=== PATIENT | female | born 1930 | race African-American/Black ===

== ENCOUNTER 2020-01-11 21:02 | Inpatient (IN) | payer OTHER ==
[~2020-01-11] VITALS: Ht 160 cm; Wt 56.3 kg
[2020-01-11] MEDS ORDERED: SODI650T33 PO (23:49)
[2020-01-11] MEDS ORDERED: MIRT-89 PO (23:49)
[2020-01-11] MEDS ORDERED: AMLO-258 PO (23:49)
[2020-01-11] MEDS ORDERED: FERRHI IV (23:49)
[2020-01-11] MEDS ORDERED: FERR-89 PO (23:49)
[2020-01-11] MEDS ORDERED: AMAN-6 PO (23:49)
[2020-01-11] MEDS ORDERED: DOCU-275 PO (23:49)
[2020-01-11] MEDS ORDERED: OS500 PO (23:49)
[2020-01-11] MEDS ORDERED: CLON1PAT12 TD (23:49)
[2020-01-12 00:31] LABS: COVID AG,FIA SOURCE NASOPHARYNGEAL
[2020-01-12 00:49] LABS: BASOPHILS % (AUTO) 0.7 % (0.0-2.0); HEMATOCRIT 21.4 % (36-46); HEMOGLOBIN 7.6 g/dL (12.0-16.0); LYMPHOCYTES # (AUTO) 2.1 K/uL (1.0-4.8); LYMPHOCYTES % (AUTO) 24.1 % (22.0-44.0); MEAN CORPUSCULAR HEMOGLOBIN 34.2 pg (26.0-34.0); MEAN CORPUSCULAR HGB CONC 35.6 G/dL (31.0-37.0); MEAN CORPUSCULAR VOLUME 96 fL (80-100); MONOCYTES # (AUTO) 0.6 K/uL (0.1-1.0); MONOCYTES % (AUTO) 7.5 % (2.0-9.0); NEUTROPHILS # (AUTO) 5.7 K/uL (1.8-7.7); NEUTROPHILS % (AUTO) 66.7 % (40.0-70.0); PLATELET COUNT (AUTO) 575 K/uL (150-450); RED BLOOD CELL COUNT(AUTO) 2.22 MIL/uL (4.00-5.20); RED CELL DISTRIBUTION WIDTH 14.2 % (11.5-14.5)
[2020-01-12 00:55] LABS: CREATININE 5.66 mg/dL (0.60-1.30); POTASSIUM 4.9 mmol/L (3.5-5.1)
[2020-01-12 01:02] LABS: ALBUMIN 2.6 g/dL (3.4-5.0); BILIRUBIN,TOTAL 0.3 mg/dL (0.1-1.0); TOTAL PROTEIN, SERUM 9.6 g/dL (6.4-8.2)
[2020-01-12 01:09] LABS: INFLUENZA TYPE A NEGATIVE FOR TYPE A (NEGATIVE); INFLUENZA TYPE B NEGATIVE FOR TYPE B (NEGATIVE)
[2020-01-12] MEDS ORDERED: SODIUM CHLORIDE 0.9% 1,000 ML IV ONE ×2 (01:30→06:15)
[2020-01-12 03:30] VITALS: BP 131/63
[2020-01-12] MEDS ORDERED: INFLUENZA VIRUS VACCINE QVS 2020-21 (6MO+)/PF 60 MCG/0.5 ML SYRINGE IM ONE (04:45)
[2020-01-12] MEDS ORDERED: PNEUMOCOCCAL VACCINE POLYVALENT 0.5 ML VIAL [PPSV23] IM ONE (04:45)
[2020-01-12] MEDS ORDERED: BISACODYL 10 MG RECTAL RECTAL SUPPOSITORY PR PRN (06:15)
[2020-01-12] MEDS ORDERED: HYDROCODONE/ACETAMINOPHEN 5-325 MG TABLET PO PRN (06:15)
[2020-01-12] MEDS ORDERED: MORPHINE SULFATE 2 MG/ML SYRINGE IVP PRN (06:15)
[2020-01-12] MEDS ORDERED: ONDANSETRON HCL 4 MG/2 ML VIAL IVP PRN (06:15)
[2020-01-12] MEDS ORDERED: MAGNESIUM HYDROXIDE SUSPENSION 30 ML UDCUP PO PRN (06:15)
[2020-01-12] MEDS ORDERED: ZOLPIDEM TARTRATE 5 MG TABLET PO PRN (06:15)
[2020-01-12] MEDS ORDERED: ACETAMINOPHEN 325 MG TABLET PO PRN (06:15)
[2020-01-12 07:18] VITALS: BP 134/66
[2020-01-12] MEDS: HEPARIN SODIUM,PORCINE 5,000 UNITS/ML VIAL SQ SCH ×2 (08:00→17:44)
[2020-01-12] MEDS: FERROUS SULFATE 325 MG EC TABLET PO SCH ×2 (08:17→17:13)
[2020-01-12] MEDS: CALCIUM OYSTER SHELL 500 MG TABLET PO SCH ×2 (08:18→21:32)
[2020-01-12] MEDS: SODIUM BICARBONATE 650 MG TABLET PO SCH ×3 (08:18→21:32)
[2020-01-12] MEDS: AmLODIPine BESYLATE 10 MG TABLET PO SCH (08:18)
[2020-01-12] MEDS: AMANTADINE HCL 100 MG CAPSULE PO SCH (08:18)
[2020-01-12] MEDS: CloNIDine 0.1 MG/24 HOUR PATCH TD SCH (08:21)
[2020-01-12] MEDS: DOCUSATE SODIUM 100 MG CAPSULE PO SCH ×2 (08:24→21:31)
[2020-01-12] MEDS ORDERED: PANTOPRAZOLE SODIUM 40 MG DR TABLET PO SCH (09:00)
[2020-01-12 10:55] VITALS: BP 114/55
[2020-01-12 14:53] VITALS: BP 124/66
[2020-01-12] MEDS: EPOETIN ALFA 10,000 UNITS/ML VIAL SQ SCH (17:23)
[2020-01-12 20:08] LABS: CREATININE,URINE RANDOM 32.4 mg/dL (30.0-125.0)
[2020-01-13] VITALS (15 sets, daily range): BP systolic 115–135; BP diastolic 47–74
[2020-01-13] MEDS: HEPARIN SODIUM,PORCINE 5,000 UNITS/ML VIAL SQ SCH
[2020-01-13 06:56] LABS: BASOPHILS % (AUTO) 0.9 % (0.0-2.0); EOSINOPHILS % (AUTO) 1.1 % (1.0-6.0); LYMPHOCYTES # (AUTO) 1.4 K/uL (1.0-4.8); LYMPHOCYTES % (AUTO) 15.9 % (22.0-44.0); MEAN CORPUSCULAR HEMOGLOBIN 33.5 pg (26.0-34.0); MEAN CORPUSCULAR HGB CONC 34.2 G/dL (31.0-37.0); MEAN CORPUSCULAR VOLUME 98 fL (80-100); MONOCYTES # (AUTO) 0.8 K/uL (0.1-1.0); NEUTROPHILS # (AUTO) 6.3 K/uL (1.8-7.7); NEUTROPHILS % (AUTO) 73.1 % (40.0-70.0); PLATELET COUNT (AUTO) 495 K/uL (150-450); RED CELL DISTRIBUTION WIDTH 14.5 % (11.5-14.5)
[2020-01-13 07:01] LABS: HEMATOCRIT 19.6 % (36-46); HEMOGLOBIN 6.7 g/dL (12.0-16.0)
[2020-01-13 07:33] LABS: CALCIUM, TOTAL 9.1 mg/dL (8.8-10.5); CREATININE 5.5 mg/dL (0.60-1.30); MAGNESIUM 1.7 mg/dL (1.80-2.40); PHOSPHORUS 5.3 mg/dL (2.5-4.9)
[2020-01-13 08:08] LABS: % IRON SATURATION 21.3 % (22-44)
[2020-01-13] MEDS: FERROUS SULFATE 325 MG EC TABLET PO SCH ×2 (08:24→17:09)
[2020-01-13] MEDS: AMANTADINE HCL 100 MG CAPSULE PO SCH (08:24)
[2020-01-13] MEDS: DOCUSATE SODIUM 100 MG CAPSULE PO SCH ×2 (08:24→20:30)
[2020-01-13] MEDS: PANTOPRAZOLE SODIUM 40 MG/VIAL IVP SCH ×2 (08:24→20:30)
[2020-01-13] MEDS: AmLODIPine BESYLATE 10 MG TABLET PO SCH (08:24)
[2020-01-13] MEDS: CALCIUM OYSTER SHELL 500 MG TABLET PO SCH ×2 (08:24→20:30)
[2020-01-13] MEDS: SODIUM BICARBONATE 650 MG TABLET PO SCH ×3 (08:24→20:30)
[2020-01-13] MEDS: CefTRIAXone 1 GM/DEXTROSE 50 ML IV SCH (13:48)
[2020-01-13] MEDS ORDERED: SODIUM CHLORIDE 0.9% 1,000 ML ONE (14:41)
[2020-01-13 15:20] LABS: HEMATOCRIT 21.1 % (36-46); HEMOGLOBIN 7.2 g/dL (12.0-16.0)
[2020-01-13 18:57] LABS: APPEARANCE,URINE TURBID (CLEAR); BILIRUBIN,URINE NEGATIVE (NEGATIVE); GLUCOSE, URINE (UA) NEGATIVE (NEGATIVE); KETONES,URINE NEGATIVE (NEGATIVE); LEUKOCYTE ESTERASE ,URINE LARGE (NEGATIVE); NITRATE,URINE NEGATIVE (NEGATIVE); OCCULT BLOOD,URINE LARGE (NEGATIVE); PH,URINE 6.5 (5.0-8.0); PROTEIN,URINE SEE CONFIRM (NEGATIVE); UROBILINOGEN,URINE 0.2 mg/dL (<=1.0)
[2020-01-13 19:14] LABS: SULFOSALICYLIC ACID,URINE 4+ (Negative)
[2020-01-13 19:15] LABS: BACTERIA,URINE Many /HPF (None Seen); WBC,URINE Full Field /HPF (0-5)
[2020-01-13 19:16] LABS: SQUAMOUS EPITHELIAL CELL,UR Few /LPF (None Seen)
[2020-01-14] VITALS (8 sets, daily range): BP systolic 96–132; BP diastolic 56–92
[2020-01-14 00:59] LABS: HEMATOCRIT 26.6 % (36-46); HEMOGLOBIN 9.1 g/dL (12.0-16.0)
[2020-01-14 06:22] LABS: BASOPHILS % (AUTO) 0.7 % (0.0-2.0); EOSINOPHILS % (AUTO) 1.5 % (1.0-6.0); HEMATOCRIT 25.2 % (36-46); HEMOGLOBIN 8.8 g/dL (12.0-16.0); LYMPHOCYTES # (AUTO) 1.6 K/uL (1.0-4.8); LYMPHOCYTES % (AUTO) 23.1 % (22.0-44.0); MEAN CORPUSCULAR HEMOGLOBIN 31.9 pg (26.0-34.0); MEAN CORPUSCULAR HGB CONC 34.9 G/dL (31.0-37.0); MEAN CORPUSCULAR VOLUME 91 fL (80-100); MONOCYTES # (AUTO) 0.6 K/uL (0.1-1.0); MONOCYTES % (AUTO) 9.1 % (2.0-9.0); NEUTROPHILS # (AUTO) 4.6 K/uL (1.8-7.7); NEUTROPHILS % (AUTO) 65.6 % (40.0-70.0); PLATELET COUNT (AUTO) 431 K/uL (150-450); RED BLOOD CELL COUNT(AUTO) 2.76 MIL/uL (4.00-5.20); RED CELL DISTRIBUTION WIDTH 19.4 % (11.5-14.5)
[2020-01-14 06:58] LABS: CALCIUM, TOTAL 9.3 mg/dL (8.8-10.5); CREATININE 5.17 mg/dL (0.60-1.30); POTASSIUM 4.8 mmol/L (3.5-5.1)
[2020-01-14] MEDS: AMANTADINE HCL 100 MG CAPSULE PO SCH (08:58)
[2020-01-14] MEDS: DOCUSATE SODIUM 100 MG CAPSULE PO SCH ×2 (08:58→21:01)
[2020-01-14] MEDS: CALCIUM OYSTER SHELL 500 MG TABLET PO SCH ×2 (08:59→21:02)
[2020-01-14] MEDS: AmLODIPine BESYLATE 10 MG TABLET PO SCH (08:59)
[2020-01-14] MEDS: FERROUS SULFATE 325 MG EC TABLET PO SCH ×2 (08:59→18:25)
[2020-01-14] MEDS: SODIUM BICARBONATE 650 MG TABLET PO SCH ×3 (08:59→21:02)
[2020-01-14] MEDS: PANTOPRAZOLE SODIUM 40 MG/VIAL IVP SCH ×2 (10:02→21:01)
[2020-01-14 12:29] LABS: HEMATOCRIT 26.7 % (36-46); HEMOGLOBIN 9.1 g/dL (12.0-16.0)
[2020-01-14] MEDS ORDERED: SODIUM CHLORIDE 0.9% 250 ML IV ONE (13:18)
[2020-01-14] MEDS: CefTRIAXone 1 GM/DEXTROSE 50 ML IV SCH (13:25)
[2020-01-14 17:23] LABS: HEMATOCRIT 25.7 % (36-46); HEMOGLOBIN 8.8 g/dL (12.0-16.0)
[2020-01-15 04:21] VITALS: BP 119/65
[2020-01-15 07:33] VITALS: BP 121/63
[2020-01-15 07:56] LABS: BASOPHILS % (AUTO) 1.3 % (0.0-2.0); EOSINOPHILS % (AUTO) 2.2 % (1.0-6.0); HEMATOCRIT 27.4 % (36-46); HEMOGLOBIN 9.6 g/dL (12.0-16.0); LYMPHOCYTES # (AUTO) 1.7 K/uL (1.0-4.8); LYMPHOCYTES % (AUTO) 29.9 % (22.0-44.0); MEAN CORPUSCULAR HEMOGLOBIN 32.2 pg (26.0-34.0); MEAN CORPUSCULAR HGB CONC 34.9 G/dL (31.0-37.0); MEAN CORPUSCULAR VOLUME 92 fL (80-100); MONOCYTES # (AUTO) 0.5 K/uL (0.1-1.0); MONOCYTES % (AUTO) 8.9 % (2.0-9.0); NEUTROPHILS # (AUTO) 3.3 K/uL (1.8-7.7); NEUTROPHILS % (AUTO) 57.7 % (40.0-70.0); PLATELET COUNT (AUTO) 412 K/uL (150-450); RED BLOOD CELL COUNT(AUTO) 2.97 MIL/uL (4.00-5.20); RED CELL DISTRIBUTION WIDTH 18.9 % (11.5-14.5)
[2020-01-15 08:10] LABS: CALCIUM, TOTAL 9.3 mg/dL (8.8-10.5); CREATININE 4.39 mg/dL (0.60-1.30); POTASSIUM 4.5 mmol/L (3.5-5.1)
[2020-01-15] MEDS: SODIUM BICARBONATE 650 MG TABLET PO SCH ×4 (08:58→21:18)
[2020-01-15] MEDS: AMANTADINE HCL 100 MG CAPSULE PO SCH (08:58)
[2020-01-15] MEDS: CALCIUM OYSTER SHELL 500 MG TABLET PO SCH (08:59)
[2020-01-15] MEDS: FERROUS SULFATE 325 MG EC TABLET PO SCH ×2 (08:59→18:41)
[2020-01-15] MEDS: DOCUSATE SODIUM 100 MG CAPSULE PO SCH ×3 (08:59→21:18)
[2020-01-15] MEDS: AmLODIPine BESYLATE 10 MG TABLET PO SCH (08:59)
[2020-01-15] MEDS: PANTOPRAZOLE SODIUM 40 MG/VIAL IVP SCH ×3 (09:01→21:18)
[2020-01-15 12:39] VITALS: BP 112/59
[2020-01-15] MEDS: CefTRIAXone 1 GM/DEXTROSE 50 ML IV SCH (13:20)
[2020-01-15 15:57] VITALS: BP 101/56
[2020-01-15 19:48] VITALS: BP 112/54
[2020-01-16 00:06] VITALS: BP 107/54
[2020-01-16 04:43] VITALS: BP 117/54
[2020-01-16 07:49] LABS: CALCIUM, TOTAL 8.9 mg/dL (8.8-10.5); CREATININE 4.05 mg/dL (0.60-1.30); MAGNESIUM 1.6 mg/dL (1.80-2.40); PHOSPHORUS 3.7 mg/dL (2.5-4.9); POTASSIUM 3.9 mmol/L (3.5-5.1)
[2020-01-16 08:38] VITALS: BP 112/57
[2020-01-16] MEDS: FERROUS SULFATE 325 MG EC TABLET PO SCH ×2 (08:42→17:58)
[2020-01-16] MEDS: DOCUSATE SODIUM 100 MG CAPSULE PO SCH ×2 (08:43→20:03)
[2020-01-16] MEDS: AMANTADINE HCL 100 MG CAPSULE PO SCH (08:43)
[2020-01-16] MEDS: AmLODIPine BESYLATE 5 MG TABLET PO SCH (08:43)
[2020-01-16] MEDS: SODIUM BICARBONATE 650 MG TABLET PO SCH ×3 (08:43→20:01)
[2020-01-16] MEDS: PANTOPRAZOLE SODIUM 40 MG/VIAL IVP SCH ×2 (08:43→20:01)
[2020-01-16 10:53] LABS: BASOPHILS % (AUTO) 1.2 % (0.0-2.0); EOSINOPHILS % (AUTO) 2.4 % (1.0-6.0); HEMOGLOBIN 8.8 g/dL (12.0-16.0); LYMPHOCYTES # (AUTO) 1.5 K/uL (1.0-4.8); LYMPHOCYTES % (AUTO) 22.8 % (22.0-44.0); MEAN CORPUSCULAR HEMOGLOBIN 32.6 pg (26.0-34.0); MEAN CORPUSCULAR HGB CONC 35.1 G/dL (31.0-37.0); MEAN CORPUSCULAR VOLUME 93 fL (80-100); MONOCYTES # (AUTO) 0.5 K/uL (0.1-1.0); MONOCYTES % (AUTO) 7.6 % (2.0-9.0); NEUTROPHILS # (AUTO) 4.3 K/uL (1.8-7.7); PLATELET COUNT (AUTO) 407 K/uL (150-450); RED BLOOD CELL COUNT(AUTO) 2.69 MIL/uL (4.00-5.20); RED CELL DISTRIBUTION WIDTH 18.6 % (11.5-14.5)
[2020-01-16] MEDS ORDERED: MAGNESIUM SULFATE 1 GM in DEXTROSE 5%-WATER 50 ML IV ONE (11:45)
[2020-01-16 11:58] LABS: GLUCOMETER DEV NAME(LOC) 5N.3; GLUCOSE,POINT OF CARE 74 MG/DL (70-110)
[2020-01-16] MEDS: CefTRIAXone 1 GM/DEXTROSE 50 ML IV SCH (12:12)
[2020-01-16 12:13] VITALS: BP 124/66
[2020-01-16 15:47] VITALS: BP 123/56
[2020-01-16 20:41] VITALS: BP 124/62
[2020-01-17 00:25] LABS: GLUCOMETER DEV NAME(LOC) 5S.1; GLUCOSE,POINT OF CARE 98 MG/DL (70-110)
[2020-01-17 00:47] VITALS: BP 122/62
[2020-01-17 05:37] VITALS: BP 120/54
[2020-01-17 07:23] LABS: POTASSIUM 3.9 mmol/L (3.5-5.1)
[2020-01-17 07:36] LABS: CALCIUM, TOTAL 8.9 mg/dL (8.8-10.5); CREATININE 3.63 mg/dL (0.60-1.30); PHOSPHORUS 3.4 mg/dL (2.5-4.9)
[2020-01-17 08:28] VITALS: BP 120/61
[2020-01-17] MEDS: PANTOPRAZOLE SODIUM 40 MG/VIAL IVP SCH ×2 (08:45→21:31)
[2020-01-17] MEDS: DOCUSATE SODIUM 100 MG CAPSULE PO SCH ×2 (08:58→21:31)
[2020-01-17] MEDS: SODIUM BICARBONATE 650 MG TABLET PO SCH ×3 (08:58→21:31)
[2020-01-17] MEDS: FERROUS SULFATE 325 MG EC TABLET PO SCH ×2 (08:58→17:21)
[2020-01-17] MEDS: AmLODIPine BESYLATE 5 MG TABLET PO SCH (08:58)
[2020-01-17] MEDS: AMANTADINE HCL 100 MG CAPSULE PO SCH (08:58)
[2020-01-17 11:45] VITALS: BP 137/72
[2020-01-17] MEDS: CefTRIAXone 1 GM/DEXTROSE 50 ML IV SCH (13:09)
[2020-01-17 15:38] VITALS: BP 162/105
[2020-01-17 16:38] LABS: ALBUMIN URINE (ELP) 27.3 %
[2020-01-17 20:23] VITALS: BP 127/62
[2020-01-18 00:26] VITALS: BP 124/76
[2020-01-18 04:30] VITALS: BP 127/63
[2020-01-18 07:05] LABS: HEMOGLOBIN 9.6 g/dL (12.0-16.0); LYMPHOCYTES # (AUTO) 1.9 K/uL (1.0-4.8); LYMPHOCYTES % (AUTO) 27.9 % (22.0-44.0); MEAN CORPUSCULAR HEMOGLOBIN 33.4 pg (26.0-34.0); MEAN CORPUSCULAR HGB CONC 35.4 G/dL (31.0-37.0); MEAN CORPUSCULAR VOLUME 94 fL (80-100); MONOCYTES # (AUTO) 0.6 K/uL (0.1-1.0); MONOCYTES % (AUTO) 8.4 % (2.0-9.0); NEUTROPHILS # (AUTO) 4.1 K/uL (1.8-7.7); NEUTROPHILS % (AUTO) 58.7 % (40.0-70.0); PLATELET COUNT (AUTO) 421 K/uL (150-450); RED BLOOD CELL COUNT(AUTO) 2.86 MIL/uL (4.00-5.20); RED CELL DISTRIBUTION WIDTH 18.5 % (11.5-14.5)
[2020-01-18 07:27] LABS: ALBUMIN 2.4 g/dL (3.4-5.0); BILIRUBIN,TOTAL 0.2 mg/dL (0.1-1.0); CALCIUM, TOTAL 8.8 mg/dL (8.8-10.5); CREATININE 2.97 mg/dL (0.60-1.30); PHOSPHORUS 3.5 mg/dL (2.5-4.9); POTASSIUM 3.6 mmol/L (3.5-5.1); TOTAL PROTEIN, SERUM 8.2 g/dL (6.4-8.2)
[2020-01-18] MEDS: AmLODIPine BESYLATE 2.5 MG TABLET PO SCH (08:14)
[2020-01-18] MEDS: FERROUS SULFATE 325 MG EC TABLET PO SCH ×2 (08:14→17:50)
[2020-01-18] MEDS: SODIUM BICARBONATE 650 MG TABLET PO SCH ×3 (08:14→21:07)
[2020-01-18] MEDS: AMANTADINE HCL 100 MG CAPSULE PO SCH (08:14)
[2020-01-18] MEDS: PANTOPRAZOLE SODIUM 40 MG/VIAL IVP SCH ×2 (08:14→21:07)
[2020-01-18] MEDS: DOCUSATE SODIUM 100 MG CAPSULE PO SCH ×2 (08:14→21:07)
[2020-01-18 08:36] VITALS: BP 130/70
[2020-01-18 12:31] VITALS: BP 125/71
[2020-01-18] MEDS: CefTRIAXone 1 GM/DEXTROSE 50 ML IV SCH (13:04)
[2020-01-18 15:40] VITALS: BP 132/72
[2020-01-18 20:15] VITALS: BP 136/69
[2020-01-19 00:15] VITALS: BP 134/71
[2020-01-19 04:20] VITALS: BP 126/74
[2020-01-19 06:35] LABS: BASOPHILS % (AUTO) 1.2 % (0.0-2.0); EOSINOPHILS % (AUTO) 4.7 % (1.0-6.0); HEMOGLOBIN 9.5 g/dL (12.0-16.0); LYMPHOCYTES % (AUTO) 28.7 % (22.0-44.0); MEAN CORPUSCULAR HEMOGLOBIN 32.6 pg (26.0-34.0); MEAN CORPUSCULAR HGB CONC 33.8 G/dL (31.0-37.0); MEAN CORPUSCULAR VOLUME 97 fL (80-100); MONOCYTES # (AUTO) 0.6 K/uL (0.1-1.0); MONOCYTES % (AUTO) 8.9 % (2.0-9.0); NEUTROPHILS % (AUTO) 56.5 % (40.0-70.0); PLATELET COUNT (AUTO) 398 K/uL (150-450); RED CELL DISTRIBUTION WIDTH 19.4 % (11.5-14.5)
[2020-01-19 07:02] LABS: CREATININE 2.89 mg/dL (0.60-1.30); POTASSIUM 3.7 mmol/L (3.5-5.1)
[2020-01-19 07:27] VITALS: BP 138/73
[2020-01-19] MEDS: CloNIDine 0.1 MG/24 HOUR PATCH TD SCH (08:26)
[2020-01-19] MEDS: EPOETIN ALFA 10,000 UNITS/ML VIAL SQ SCH (08:27)
[2020-01-19] MEDS: FERROUS SULFATE 325 MG EC TABLET PO SCH ×2 (08:27→18:10)
[2020-01-19] MEDS: PANTOPRAZOLE SODIUM 40 MG/VIAL IVP SCH ×2 (08:27→20:25)
[2020-01-19] MEDS: DOCUSATE SODIUM 100 MG CAPSULE PO SCH ×2 (08:27→20:25)
[2020-01-19] MEDS: SODIUM BICARBONATE 650 MG TABLET PO SCH ×2 (08:27→20:25)
[2020-01-19] MEDS: AMANTADINE HCL 100 MG CAPSULE PO SCH (08:28)
[2020-01-19] MEDS: AmLODIPine BESYLATE 2.5 MG TABLET PO SCH (08:28)
[2020-01-19 11:05] VITALS: BP 143/55
[2020-01-19 12:57] LABS: MAGNESIUM 1.8 mg/dL (1.80-2.40); PHOSPHORUS 3.4 mg/dL (2.5-4.9)
[2020-01-19] MEDS: CefTRIAXone 1 GM/DEXTROSE 50 ML IV SCH (13:10)
[2020-01-19] MEDS ORDERED: SODIUM CHLORIDE 0.9% 250 ML IV ONE (13:13)
[2020-01-19 13:18] LABS: THYROID STIMULATING HORMONE 72.05 uIU/mL (0.36-3.74)
[2020-01-19 15:15] VITALS: BP 145/72
[2020-01-19] MEDS: LEVOTHYROXINE SODIUM 100 MCG TABLET PO SCH (18:10)
[2020-01-19 19:49] VITALS: BP 150/73
[2020-01-20 00:01] VITALS: BP 128/72
[2020-01-20 04:38] VITALS: BP 136/73
[2020-01-20] MEDS: LEVOTHYROXINE SODIUM 100 MCG TABLET PO SCH (05:38)
[2020-01-20 06:05] VITALS: BP 142/68
[2020-01-20 07:14] LABS: CALCIUM, TOTAL 8.9 mg/dL (8.8-10.5); CREATININE 2.34 mg/dL (0.60-1.30); MAGNESIUM 1.8 mg/dL (1.80-2.40); PHOSPHORUS 3.2 mg/dL (2.5-4.9); POTASSIUM 3.6 mmol/L (3.5-5.1)
[2020-01-20 07:38] LABS: FREE T4 (FREE THYROXINE) 0.75 ng/dL (0.76-1.46)
[2020-01-20 07:47] VITALS: BP 132/79
[2020-01-20] MEDS: AmLODIPine BESYLATE 2.5 MG TABLET PO SCH (09:24)
[2020-01-20] MEDS: AMANTADINE HCL 100 MG CAPSULE PO SCH (09:24)
[2020-01-20] MEDS: PANTOPRAZOLE SODIUM 40 MG/VIAL IVP SCH (09:24)
[2020-01-20] MEDS: FERROUS SULFATE 325 MG EC TABLET PO SCH (09:24)
[2020-01-20] MEDS: DOCUSATE SODIUM 100 MG CAPSULE PO SCH (09:24)
[2020-01-20] MEDS: SODIUM BICARBONATE 650 MG TABLET PO SCH (09:24)
[2020-01-20] MEDS ORDERED: TAMSULOSIN HCL 0.4 MG CAPSULE PO SCH (10:45)
[2020-01-20 12:06] VITALS: BP 143/71
[2020-01-20] MEDS: CefTRIAXone 1 GM/DEXTROSE 50 ML IV SCH (12:28)
[2020-01-20] MEDS ORDERED: AMLO2.5T29 PO (13:24)
[2020-01-20] MEDS ORDERED: LEVO100 PO (13:25)
[2020-01-20] MEDS ORDERED: PANT40VI14 IVP (13:26)
[2020-01-20] MEDS ORDERED: SODI650T PO (13:27)
[2020-01-20] MEDS ORDERED: TAMS-13 PO (13:28)
[2020-01-20] MEDS ORDERED: PANT-31 PO (13:30)
== END 2020-01-20 17:10 | DRG 682 ==
LOC: EMS 21:12 → 5S 01-12 02:00
PROVIDERS: ADMIT Internal Medicine; ATTEND Internal Medicine
PROC: 30233N1 Transfusion of Nonautologous Red Blood Cells into Peripheral Vein, Percutaneous Approach (ICD-10-PCS; principal; 2020-01-13)
DX: N17.9 Acute kidney failure, unspecified (principal); E43 Unspecified severe protein-calorie malnutrition; E87.1 Hypo-osmolality and hyponatremia; I10 Essential (primary) hypertension; D64.9 Anemia, unspecified; F03.90 Unspecified dementia, unspecified severity, without behavioral disturbance, psychotic disturbance, mood disturbance, and anxiety; F20.9 Schizophrenia, unspecified; I12.9 Hypertensive chronic kidney disease with stage 1 through stage 4 chronic kidney disease, or unspecified chronic kidney disease; N18.9 Chronic kidney disease, unspecified; K21.9 Gastro-esophageal reflux disease without esophagitis; N13.6 Pyonephrosis; E03.9 Hypothyroidism, unspecified; I44.1 Atrioventricular block, second degree; Z20.828 Contact with and (suspected) exposure to other viral communicable diseases; Z90.710 Acquired absence of both cervix and uterus; Z85.038 Personal history of other malignant neoplasm of large intestine; Z68.22 Body mass index [BMI] 22.0-22.9, adult
CPT/HCPCS: 76770; 82043; 82270; 82570; 82728; 83540; 83550; 83735; 83930; 83970; 84100; 84155; 84156; 84165; 84166; 84300; 84439; 84443; 85014; 85018; 86850; 86860; 86870; 86880; 86900; 86901; 86905; 86922; 86970; 86971; 86999; 87086; 87426; 87804; 93005; 93306; C9113; J0696; J0885; J1644; J2405; J3475; J7030; J7050; J7060; P9016; 36415-L1; 36415-TC; 71045-TC; U0003